=== PATIENT | male | born 1970 | race Caucasian/White ===

== ENCOUNTER 2024-06-11 17:27 | Emergency (ER) | payer OTHER, SELFPAY ==
[2024-06-11 17:29] VITALS: BP 163/88
[2024-06-11 17:58] VITALS: BMI 22.4
[2024-06-11 18:00] VITALS: BP 137/83
[2024-06-11 18:12] LABS: % Basophils 0.6 % (0-2); % Eosinophils 1.3 % (0-6); % Immature Granulocytes 0.2 % (0-0.5); % Lymphocytes 28.6 % (20.5-51.1); % Monocytes 7.4 % (1.7-9.3); % Neutrophils 61.9 % (42.2-75.2); Absolute Basophils 0.1 10^3/uL (0-0.2); Absolute Eosinophils 0.1 10^3/uL (0-0.7); Absolute Lymphocytes 2.4 10^3/uL (1.2-3.4); Absolute Monocytes 0.6 10^3/uL (0.1-0.6); Absolute Neutrophils 5.2 10^3/uL (1.4-6.5); Hematocrit 41.4 % (39.0-52.0); Hemoglobin 14.4 g/dL (13.0-18.0); Mean Corp Hgb Conc. 34.8 g/dL (33.0-37.0); Mean Corpuscular Hgb 30.6 pg (27.0-31.0); Mean Corpuscular Volume 87.9 fL (80.0-94.0); Mean Platelet Volume 9.3 fL (7.4-10.4); Nucleated Red Blood Cells % 0 % (-); Platelet Count 278 10^3/uL (130-400); Red Blood Cell Count 4.71 10^6/uL (4.70-6.10); Red Cell Dist. Width 13.2 % (11.5-14.5); White Blood Cell Count 8.5 10^3/uL (4.8-10.8)
--- NOTE | 2024-06-11 18:12 | ED.GENMED ---
History of Present Illness
General
Chief Complaint: Dizziness
Source: patient
Time Seen by Provider: 06/11/24 18:11
History of Present Illness
History of Present Illness:
54yoM with no significant past medical history presenting for evaluation after a near syncopal episode. He was standing in his living room this morning around 10:30am. He took a few steps and started to feel his vision blur with associated
lightheadedness. He felt like he was about to pass out. He felt very clammy at that time. His watch indicated that his heart rate was 130. He sat down and tried to deep breaths to calm himself down. He then started to experience tingling
sensation in his bilateral hands and feet. The entire episode lasted around 45 minutes to an hour before resolving. There was no associated chest pain. He then felt normal for several hours. He had a second episode of lightheadedness around 4:30
PM while he was sitting on the couch. This episode was more mild and his heart rate was normal at that time. Of note, patient has been having a soreness underneath his ribs into his back over the past week or so which he did not think much of. He
is also having heartburn and belching which is new for him. Patient is currently feeling much better and denies any dizziness. He had an episode of syncope about 5 years ago and was seen by cardiology. Testing including EKG was normal at that
time.
Past History
Past History
ED Past Medical History: None
ED Past Surgical History: Other (Patient has had oral surgery)
Social History
Personal:
Living: with family
Employment: Employed
Phy Exam
General Physical Exam
General Presentation: well appearing and no apparent distress
General age: appears stated age
General Skin: warm and dry
General Habitus: normal
General Mental: alert
General Hydration: appears well hydrated
ENT Exam
ENT Exam: normocephalic
Cardiovascular Exam
Cardiovascular Exam: regular rate/rhythm, no murmur and normal peripheral pulses (2+ radial and DP pulses)
Pulmonary Exam
Pulmonary Exam: lungs clear, no respiratory distress, no rales, no crackles, no rhonchi and no wheezing
Neurological Exam
Neurological Exam: alert
Jose Coma Scale
Eye Opening: Spontaneous
Verbal Response: Oriented
Motor Response: Obeys Commands
GCS Total Score: 15
Skin Exam
Skin Exam: normal color and warm/dry
Psychiatric Exam
Psychiatric Exam: normal mood/affect
Course
Orders/Labs/Results
Orders:
Orders
06/11/24 17:28
ECG [Electrocardiogram (*1)] Urgent
Reason for Study: Chest Pain
EKG- Treatment ONCE
06/11/24 18:06
Complete Blood Count/With Diff Urgent
Comprehensive Metabolic Panel Urgent
Lipase Urgent
Comment: ADD ON
Magnesium Urgent
Comment: ADD ON
TSH Urgent
Comment: ADD ON
Troponin I Urgent
06/11/24 18:26
Add On- LAB Urgent
Tests Added?: TSH, magnesium, lipase
CR Chest - 2 Views Urgent
Comment:
Reason For Exam: SOB
06/11/24 18:06
06/11/24 18:06
Vital Signs
Initial and Last Documented VS:
Initial Vital Signs
Temp Pulse Resp BP Pulse Ox
98.2 F 68 20 163/88 99
06/11/24 17:29 06/11/24 17:29 06/11/24 17:29 06/11/24 17:29 06/11/24 17:29
Last Documented Vital Signs
Temp Pulse Resp BP Pulse Ox
98.2 F 61 20 137/83 97
06/11/24 17:29 06/11/24 18:45 06/11/24 17:29 06/11/24 18:00 06/11/24 18:45
MDM/Problems Addressed
Differential Diagnosis Includes:
54yoM here after an episode of near syncope this morning. [place] lightheaded and clammy during the event with bilateral hand/foot paresthesias. HR reportedly 130 at that time. No associated chest pain. Currently asymptomatic. He is hypertensive in
triage but blood pressure normal on initial exam. Remainder of vitals stable. He is well appearing in no distress. Exam is reassuring. Differential diagnosis includes but is not limited to: orthostatic hypotension, dehydration, vasovagal episode,
arrhythmia, thyroid dysfunction
Initial ED plan: Check cardiac labs, magnesium, TSH, EKG, and CXR.
*EKG
Interpreted by ED Provider?: Yes
EKG Intrepretation Date: 06/11/24
Heart Rate: 64
Rate: normal
Rhythm: sinus
Plover: normal axis
Interval: normal interval
QRS Pattern: normal QRS
Ischemia: no ischemia
*Critical Care Note
Total Time (30-74mins, 75-104mins- exclusive of procedures): Not Applicable
Update Note
Update Note:
EKG shows NSR without ischemic changes or ectopy. Troponin WNL. Remainder of labs unremarkable including normal electrolytes and TSH. CXR is clear. Patient remains asymptomatic on reassessment. No indication for admission. He was advised to purchase
an larry for his [employer] Watch to monitor his heart rate. Advised close f/u with PCP and strict ED return precautions discussed. He expressed understanding and is agreeable to plan. He was discharged in stable condition.
ED Attending Note
-
Portions of this chart may have been created with voice recognition software.� Occasional wrong word or��sound alike� substitutions may have occurred due to the inherent limitations of voice recognition software.
Discharge Plan
Departure
Patient Disposition: Home (Routine Discharge)
Date of Disposition: 06/11/24
Time of Disposition: 19:35
Patient with high blood pressure during this ER visit?: Yes
Discharge Problem:
Near syncope
Instructions: Near Fainting (DC)
Prescriptions:
No Action
No Meds [No Current Medications]
oxycodone-acetaminophen [Percocet] 1 EACH tablet
1 - 2 ea PO Q4HPRN PRN (Reason: prn for pain) Qty: 25 0RF
Referrals:
Anatoly Da Silva MD [Family Provider] -
Activity Restrictions/Additional Instructions:
Please call your family doctor on Thursday to schedule a follow-up appointment. Return to the ER immediately with any new or worsening symptoms.
Interventions
Interventions:
*Risk Screen - Suicide Last Done: 06/11/24 18:15
*General Assessment Last Done: 06/11/24 17:29
*Neglect/Abuse Screening Last Done: 06/11/24 18:15
*ED COVID-19 Vaccine History Last Done: 06/11/24 18:15
ED- Cardiac Assessment Last Done: 06/11/24 18:15
ED- Neurological Assessment Last Done: 06/11/24 18:15
ED Swallowing Screen Last Done: 06/11/24 18:15
Discharge Date and Time
Print Language: ROMANSH
[2024-06-11 18:37] LABS: Troponin I < 0.012 ng/ml
[2024-06-11 18:50] LABS: ALT (SGPT) 14 U/L (0-50); AST (SGOT) 22 U/L (17-59); Albumin 4.3 g/dl (3.5-5.0); Alkaline Phosphatase 59 U/L (38-126); Blood Urea Nitrogen 13 mg/dl (9-20); Calcium 9.3 mg/dl (8.4-10.2); Carbon Dioxide 28 mmol/L (22-30); Chloride 104 mmol/L (98-107); Estimated Creatinine Clearance 110 ml/min; Glucose 94 mg/dl (70-99); Lipase 102 U/L (23-300); Magnesium 1.9 mg/dl (1.6-2.3); Potassium 4.4 mmol/L (3.5-5.1); Sodium 140 mmol/L (135-145); Total Bilirubin 0.4 mg/dl (0.2-1.3); Total Protein 6.5 g/dl (6.3-8.2); eGFR > 60.00
[2024-06-11 19:21] LABS: TSH 3.01 uIU/ml (0.47-4.68)
[2024-06-11 19:29] VITALS: BP 122/84
[2024-06-11 19:51] VITALS: BP 124/85
[2024-06-11 20:10] VITALS: BP 124/85
== END 2024-06-11 20:10 | disposition home or self-care (01) ==
LOC: EMR 17:27
PROVIDERS: Emergency Medicine; EMERGENCY PHYSICIAN Emergency Medicine; FAMILY PHYSICIAN Family Medicine
DX: R55 Syncope and collapse (principal)
CPT/HCPCS: 99285; 71046; 80053; 83690; 83735; 84443; 84484; 85025; 93005